=== PATIENT | female | born 1960 | race Caucasian/White ===

== ENCOUNTER 2022-01-06 09:34 | Day surgery (SDC) | payer OTHER ==
[~2022-01-06] VITALS: Ht 165.1 cm; Wt 89.4 kg
[~2022-01-06 09:34] MED LIST: CEFAZOLIN SOD 2 GM in D5W 50 ML IV ONE
[2022-01-06] MEDS ORDERED: LR 1,000 ML IV.SOLN IV ONE (11:25)
[2022-01-06] MEDS ORDERED: SEVOFLURANE 15 MIN GAS INH ONE (11:25)
[2022-01-06] MEDS ORDERED: MIDAZOLAM HCL 2 MG/2 ML VIAL (VERSED) ONE (11:25)
[2022-01-06] MEDS ORDERED: PROPOFOL 200MG/ 20ML VIAL (DIPRIVAN) IV ONE (11:25)
[2022-01-06] MEDS ORDERED: BUPIVACAINE /PF 0.25% 10 ML VIAL INJ ONE (11:25)
[2022-01-06] MEDS ORDERED: ROCURONIUM BROMIDE 10 MG/ML (ZEMURON) ONE (11:25)
[2022-01-06] MEDS ORDERED: ONDANSETRON HCL 4 MG/2 ML VIAL ONE (11:25)
[2022-01-06] MEDS ORDERED: NS IRRIG SOLN 1000 ML IR ONE (11:25)
[2022-01-06] MEDS ORDERED: KETOROLAC TROMETHAMINE 30 MG VIAL ONE (11:25)
[2022-01-06] MEDS ORDERED: DEXAMETHASONE SOD PHOSPHATE 4 MG/ML VIAL ONE (11:25)
[2022-01-06] MEDS ORDERED: fentaNYL CITRATE/PF 100 MCG/2 ML AMP ONE (11:25)
[2022-01-06] MEDS ORDERED: SUCCINYLCHOLINE CHLORIDE 20 MG/ML(QUELICIN) ONE (11:25)
[2022-01-06] MEDS ORDERED: ACETAMINOPHEN 325 MG TABLET PO ONE (12:30)
[2022-01-06] MEDS ORDERED: ONDANSETRON HCL 4 MG/2 ML VIAL IVP PRN (12:30)
[2022-01-06] MEDS ORDERED: KETOROLAC TROMETHAMINE 30 MG VIAL IVP PRN (12:30)
[2022-01-06] MEDS ORDERED: HYDROmorphone 1 MG/ML INJ. CARTRIDGE IVP PRN (12:30)
[2022-01-06] MEDS ORDERED: BUPIVACAINE LIPOSOME/PF 266 MG/20 ML VIAL INFIL ONE (12:53)
[2022-01-06] MEDS ORDERED: traMADol HCL HCL 50 MG TABLET (ULTRAM) PO PRN (14:45)
[2022-01-06 17:21] VITALS: BP_SYST 161
== END 2022-01-06 16:15 | disposition home or self-care (01) ==
LOC: SDS 09:34 → SMU 09:35 → SDS 16:15
PROVIDERS: ATTEND Surgery
DX: K43.2 Incisional hernia without obstruction or gangrene (principal); N73.6 Female pelvic peritoneal adhesions (postinfective); K21.9 Gastro-esophageal reflux disease without esophagitis; E03.9 Hypothyroidism, unspecified; E66.01 Morbid (severe) obesity due to excess calories; Z90.710 Acquired absence of both cervix and uterus; Z90.722 Acquired absence of ovaries, bilateral; Z79.899 Other long term (current) drug therapy; Z20.822 Contact with and (suspected) exposure to COVID-19
CPT/HCPCS: 36415; 49654; C1727; C1781; C9290; J0330; J0690; J1100; J1885; J2405; J2704; J3010; J3465; J3490; J7060; J7120; S2900; U0003; L8699